=== PATIENT | female | born 1945 | race Hispanic/Latino ===

== ENCOUNTER 2018-03-30 10:17 | Day surgery (SDC) | payer MEDICARE ==
[~2018-03-30 10:17] MED LIST: ANCEF/STERILE WATER 2 GM/20 ML 2 GM/20 ML SYRINGE IV NR
[2018-03-30 11:25] LABS: Basophils % (Auto) 1.1 % (0.0-1.8); Eosinophils # (Auto) 0.2 K/mm3 (0.0-0.4); Eosinophils % (Auto) 4.6 % (0.0-4.3); Hematocrit 35.7 % (30.3-42.9); Hemoglobin 12.1 gm/dl (10.1-14.3); Lymphocytes # (Auto) 1.1 K/mm3 (1.2-5.4); Lymphocytes % (Auto) 27.2 % (13.4-35.0); Mean Corpuscular HGB Conc 34 % (30-34); Mean Corpuscular Hemoglobin 31 pg (28-32); Mean Corpuscular Volume 90 fl (79-97); Monocytes # (Auto) 0.4 K/mm3 (0.0-0.8); Monocytes % (Auto) 8.9 % (0.0-7.3); Platelet Count 190 K/mm3 (140-440); Red Blood Count 3.95 M/mm3 (3.65-5.03); Red Cell Distribution Width 13.5 % (13.2-15.2)
[2018-03-30 11:36] LABS: INR 0.99 (0.87-1.13)
[2018-03-30 11:37] LABS: Partial Thromboplastin Time 32.2 Sec. (24.2-36.6)
[2018-03-30 12:09] LABS: Albumin 4.3 g/dL (3.9-5); Calcium 9.4 mg/dL (8.4-10.2)
[2018-03-30] MEDS: NACL 0.9% 1000 ML 1,000 ML IV SCH ×2 (12:10→14:44)
[2018-03-30] MEDS ORDERED: XYLOCAINE 2% INFILTRATI ONE (14:23)
[2018-03-30] MEDS ORDERED: HEPARIN/NS 5000 UNIT/500ML(CATH LAB) 1,000 ML IR ONE (14:23)
[2018-03-30] MEDS ORDERED: SUBLIMAZE ONE (14:39)
[2018-03-30] MEDS ORDERED: VERSED ONE (14:39)
--- NOTE | 2018-03-30 15:34 | Short Stay Summary ---
Short Stay Documentation Date of service: 03/30/18 - History Principal diagnosis: venous hypertension, compression of a vein H&P: obtained from office - Allergies and Medications Current Medications: Allergies codeine Allergy (Verified 03/30/18 12:23) STOPS PT FROM BREATHING Tetanus Vaccines and Toxoid Allergy (Verified 03/30/18 12:23) Rash Home Medications Medication Instructions Recorded Confirmed Last Taken Type Aspirin [Adult Low Dose Aspirin EC] 81 mg PO DAILY 03/30/18 03/30/18 03/29/18 History 81mg Carvedilol 25 mg PO DAILY 03/30/18 03/30/18 03/29/18 History 25mg Colesevelam [Welchol] 625 mg PO DAILY 03/30/18 03/30/18 03/29/18 History 625mg Ergocalciferol [Vitamin D2] 1 cap PO DAILY 03/30/18 03/30/18 03/29/18 History 1 Fenofibrate Nanocrystallized 145 mg PO DAILY 03/30/18 03/30/18 03/29/18 History [Fenofibrate] 145mg Furosemide [Lasix TAB] 20 mg PO DAILY 03/30/18 03/30/18 03/29/18 History 20mg Gabapentin [Neurontin] 100 mg PO TID 03/30/18 03/30/18 03/29/18 History 100mg Levothyroxine Sodium 25 mcg PO DAILY 03/30/18 03/30/18 03/29/18 History 25mcg Losartan Potassium 100 mg PO DAILY 03/30/18 03/30/18 03/29/18 History 100mg Magnesium Oxide 400 mg PO TID 03/30/18 03/30/18 03/29/18 History 300mg Metformin HCl 1,000 mg PO BID 03/30/18 03/30/18 03/28/18 History 1000mg Oxybutynin [Ditropan] 5 mg PO DAILY 03/30/18 03/30/18 03/29/18 History 5mg Ranitidine HCl [Heartburn Relief] 150 mg PO QPM 03/30/18 03/30/18 03/29/18 History 150mg Sodium Bicarbonate 650 mg PO BID 03/30/18 03/30/18 03/29/18 History 650mg Travoprost [Travatan Z 0.004%] 1 drop OU QHS 03/30/18 03/30/1803/29/18 History 1 amLODIPine [Norvasc] 10 mg PO DAILY 03/30/18 03/30/18 03/29/18 History 10mg glipiZIDE XL [Glucotrol Xl] 10 mg PO DAILY 03/30/18 03/30/18 03/29/18 History 10mg Active Medications Cefazolin Sodium (Ancef/Sterile Water 2 Gm/20 Ml) 2 gm in 20 mls @ 80 mls/hr IV PREOP NR; Protocol Stop: 03/30/18 23:59 Sodium Chloride (Nacl 0.9% 1000 Ml) 1,000 mls @ 42 mls/hr IV DIRECT KYRA Last Admin: 03/30/18 14:44 Dose: 42 mls/hr - Brief post op/procedure progress note Date of procedure: 03/30/18 Pre-op diagnosis: venous hypertension, compression of a vein Post-op diagnosis: same Procedure: Venogram, IVUS Anesthesia: local Surgeon: DARLEEN BALLARD Estimated blood loss: minimal Pathology: none Condition: stable - Disposition Condition at discharge: Good Disposition: DC-01 TO HOME OR SELFCARE Short Stay Discharge Plan Activity: advance as tolerated Weight Bearing Status: Weight Bear as Tolerated Diet: regular Wound: keep clean and dry, per your surgeon's advice Follow up with: DANIELLE ANTONIO MD [Primary Care Provider] - 7 Days
--- NOTE | 2018-03-30 15:41 | Operative Report ---
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 The patient was brought to the angiographic suite and placed in supine position on the examination table. Initial ultrasound evaluation of her legs demonstrated patent femoral veins bilaterally. Her legs were prepped from groin to mid thigh in the usual sterile fashion. 1% lidocaine was used for anesthesia. Under ultrasound guidance, the right femoral vein was cannulated proximally using a 7 cm 18-gauge needle. A 0.035 guidewire was advanced centrally under fluoroscopy. The needle was removed and a 5 [place] sheath placed. Access to the left proximal femoral vein was obtained of the similar fashion and a second I [place] sheath placed. Bilateral lower extremity venogram was then performed through the sheath. This demonstrates approximately 80% stenosis within the left external iliac vein. Additionally, there is a 70% stenosis within the right external iliac vein and prestenotic dilatation. Overall, the veins are diminutive in size. A decision was made to further evaluate with intravascular ultrasound. Intravascular ultrasound was performed through the right sheath from the IVC, right common iliac vein, right external iliac vein and right common femoral vein. The IVC is widely patent. The right common iliac vein demonstrates 20% stenosis extending into to an 80% stenosis in the external iliac vein. The right common femoral vein is patent. Intravascular ultrasound was then performed through the left sheath from the IVC , left common iliac vein, left external iliac vein and left common femoral vein. The left common iliac vein demonstrates a 20% stenosis extending into an 80% stenosis within the left external iliac vein proximally. The left common femoral vein is patent. Given the size of the veins, the patient will need to be treated with to 14 mm x 90 mm wall stents however, these will need to be brought in. At this point, the catheters, guidewires and she's were removed and hemostasis achieved using manual compression. Sterile compression dressings were then applied. The patient tolerated the procedure well. There were no immediate post procedure complications. Conscious sedation was performed under the guidance of radiologic nursing. Continuous cardiopulmonary monitoring was utilized. Impression: 1) Bilateral lower extremity venogram demonstrating significant stenosis and bilateral external iliac veins. 2) Intravascular ultrasound performed in the IVC, right common iliac vein, right external iliac vein, right common femoral vein, left common iliac vein, left external iliac vein and left common femoral vein. Intravascular ultrasound demonstrates 20% stenosis in the right common iliac vein extending into an 80% stenosis in the right external iliac vein. Intravascular ultrasound demonstrates a 20% stenosis extending into an 80% stenosis of the left external iliac vein proximally.
[2018-03-30 16:38] VITALS: BP 142/64
== END 2018-03-30 17:15 | disposition home or self-care (01) ==
LOC: CATHLABREC 10:17
PROVIDERS: ATTEND Radiology Diagnostic Radiology
DX: I87.1 Compression of vein (principal); I87.2 Venous insufficiency (chronic) (peripheral); I10 Essential (primary) hypertension; E11.9 Type 2 diabetes mellitus without complications; E78.5 Hyperlipidemia, unspecified; Z79.82 Long term (current) use of aspirin; Z79.84 Long term (current) use of oral hypoglycemic drugs; Z79.01 Long term (current) use of anticoagulants; Z88.5 Allergy status to narcotic agent; Z88.7 Allergy status to serum and vaccine; Z88.6 Allergy status to analgesic agent; Z88.8 Allergy status to other drugs, medicaments and biological substances; Z90.710 Acquired absence of both cervix and uterus; Z90.49 Acquired absence of other specified parts of digestive tract; Z90.11 Acquired absence of right breast and nipple; Z85.3 Personal history of malignant neoplasm of breast; Z86.718 Personal history of other venous thrombosis and embolism; Z80.9 Family history of malignant neoplasm, unspecified
CPT/HCPCS: 36415; 37252; 37253; 75822; 76937; 80053; 85025; 85610; 85730; 99156; 99157; C1753; C1769; C1894; J1644; J2250; J3010; J7030; Q9967

== ENCOUNTER 2018-04-23 09:48 | Day surgery (SDC) | payer MEDICARE ==
[~2018-04-23 09:48] MED LIST changes: +NACL 0.9% 1000 ML 1,000 ML IV SCH
[2018-04-23] MEDS ORDERED: VERSED ONE (12:09)
[2018-04-23] MEDS ORDERED: HEPARIN/NS 5000 UNIT/500ML(CATH LAB) 1,000 ML IR ONE (12:09)
[2018-04-23] MEDS ORDERED: HEPARIN 10,000 UNITS/10 ML ONE (12:09)
[2018-04-23] MEDS ORDERED: SUBLIMAZE ONE (12:09)
[2018-04-23] MEDS: XYLOCAINE 2% INFILTRATI ONE ×2 (12:26→12:28)
[2018-04-23] MEDS ORDERED: TORADOL ONE (12:36)
--- NOTE | 2018-04-23 13:30 | Short Stay Summary ---
Short Stay Documentation Date of service: 04/23/18 - History Principal diagnosis: venous hypertension/ compression of vein H&P: obtained from office - Allergies and Medications Current Medications: Allergies codeine Allergy (Verified 03/30/18 12:23) STOPS PT FROM BREATHING Tetanus Vaccines and Toxoid Allergy (Verified 03/30/18 12:23) Rash Home Medications Medication Instructions Recorded Confirmed Last Taken Type Aspirin [Adult Low Dose Aspirin EC] 81 mg PO DAILY 03/30/18 04/23/18 04/23/18 History 81 mg Carvedilol 25 mg PO DAILY 03/30/18 04/23/18 04/22/18 History 25 mg Colesevelam [Welchol] 625 mg PO DAILY 03/30/18 04/23/18 04/22/18 History 625 mg Ergocalciferol [Vitamin D2] 1 cap PO DAILY 03/30/18 04/23/18 04/22/18 History 1 cap Fenofibrate Nanocrystallized 145 mg PO DAILY 03/30/18 04/23/18 04/22/18 History [Fenofibrate] 145 mg Furosemide [Lasix TAB] 20 mg PO DAILY 03/30/18 04/23/18 04/22/18 History 20 mg Gabapentin [Neurontin] 100 mg PO TID 03/30/18 04/23/18 04/22/18 History 100 Levothyroxine Sodium 25 mcg PO DAILY 03/30/18 04/23/18 04/22/18 History 25mcg Losartan Potassium 100 mg PO DAILY 03/30/18 04/23/18 04/23/18 History 100 Magnesium Oxide 400 mg PO TID 03/30/18 04/23/18 04/22/18 History 400 Metformin HCl 1,000 mg PO BID 03/30/18 04/23/18 04/21/18 History 1000 Oxybutynin [Ditropan] 5 mg PO DAILY 03/30/18 04/23/18 04/22/18 History 5 mg Ranitidine HCl [Heartburn Relief] 150 mg PO QPM 03/30/18 04/23/18 04/22/18 History 150 mg Sodium Bicarbonate 650 mg PO BID 03/30/18 04/23/18 04/22/18 History 650 mg Travoprost [Travatan Z 0.004%] 1 drop OU QHS 03/30/18 04/23/18 04/22/18 History 1 drop amLODIPine [Norvasc] 10 mg PO DAILY 03/30/18 04/23/18 04/22/18 History 10 mg glipiZIDE XL [Glucotrol Xl] 10 mg PO DAILY 03/30/18 04/23/18 04/22/18 History 10 mg Active Medications Cefazolin Sodium (Ancef/Sterile Water 2 Gm/20 Ml) 2 gm in 20 mls @ 80 mls/hr IV PREOP NR; Protocol Stop: 04/23/18 23:59 Sodium Chloride (Nacl 0.9% 1000 Ml) 1,000 mls @ 42 mls/hr IV DIRECT KYRA Last Admin: 04/23/18 11:01 Dose: 42 mls/hr - Brief post op/procedure progress note Date of procedure: 04/23/18 Pre-op diagnosis: venous hypertension/ compression of vein Post-op diagnosis: same Procedure: BLE venogram, venoplasty with stent Anesthesia: local Surgeon: DARLEEN BALLARD Estimated blood loss: minimal Pathology: none Condition: stable - Disposition Condition at discharge: Good Disposition: DC-01 TO HOME OR SELFCARE Short Stay Discharge Plan Activity: advance as tolerated Weight Bearing Status: Weight Bear as Tolerated Diet: regular Wound: keep clean and dry, per your surgeon's advice Follow up with: DANIELLE ANTONIO MD [Primary Care Provider] - 7 Days
--- NOTE | 2018-04-23 13:33 | Operative Report ---
Operative Report Operative Report: Exam: Bilateral lower extremity venogram, venoplasty with stent placement Clinical indication: Patient with a history of venous hypertension and extrinsic compression of his iliac veins Date: 04/23/2018 Procedure: Following an explanation of the risks, benefits and alternatives; written informed consent was obtained. The patient was brought to the injury graphic suite and placed in supine position on the examination table. Initial ultrasound evaluation of his legs demonstrated patent femoral veins bilaterally. The patient's legs and groin were prepped and draped in the usual sterile fashion. 1% lidocaine was used for anesthesia. Under ultrasound guidance, the right femoral vein was cannulated proximally with a 7 cm 18-gauge needle. A 0.035 guidewire was advanced centrally under fluoroscopy. The needle was removed and a 5 [place] sheath placed. Access to the left proximal femoral vein was obtained in a similar fashion and a second 5 [place] sheath placed. Angiography was then performed through the sheaths which demonstrated significant extrinsic compression on bilateral external iliac veins. An 14 mm x 60 mm Wallstent was advanced through the right sheath and deployed from the common iliac vein across the lesion, a second 14 X 60 Wall stent was deployed in the right external iliac vein to the distal right external iliac vein. A 14 x 90 mm Wallstent was advanced through the left sheath and deployed in the left common iliac vein across the lesion in the left external iliac vein to the distal left external iliac vein. The stents were seated using 12 x 60 mm balloons insufflated at multiple locations phenomenal atmospheres. Post stent placement and angioplasty imaging demonstrated reduction of the stenosis to less than 10%. There is brisk flow throughout the deep venous system At this point, the catheters, guidewires and sheaths were removed and hemostasis achieved using manual compression. Sterile compression dressings were then applied. The patient tolerated the procedure well. There were no immediate post procedure complications. Conscious sedation was performed under the guidance of radiologic nursing. Continuous cardiopulmonary monitoring was utilized. Depression: 1) Bilateral lower extremity venogram demonstrating significant compression of external iliac veins bilaterally. 2) Prior venogram demonstrates stenosis involving the right common iliac vein, right external iliac vein and left common iliac vein 3) Treatment of the lesions with wall stents and venoplasty as described with residual less than 10% stenosis.
[2018-04-23 13:56] VITALS: BP 133/65
== END 2018-04-23 15:15 | disposition home or self-care (01) ==
LOC: CATHLABREC 09:48 → CATH 09:48 → CATHLABREC 15:15
PROVIDERS: ATTEND Radiology Diagnostic Radiology
DX: I87.1 Compression of vein (principal); I87.302 Chronic venous hypertension (idiopathic) without complications of left lower extremity; I10 Essential (primary) hypertension; M19.90 Unspecified osteoarthritis, unspecified site; E03.9 Hypothyroidism, unspecified; K21.9 Gastro-esophageal reflux disease without esophagitis; M81.0 Age-related osteoporosis without current pathological fracture; G62.9 Polyneuropathy, unspecified; E78.00 Pure hypercholesterolemia, unspecified; Z79.82 Long term (current) use of aspirin; Z90.10 Acquired absence of unspecified breast and nipple; Z79.899 Other long term (current) drug therapy; Z88.7 Allergy status to serum and vaccine; Z88.5 Allergy status to narcotic agent; Z88.8 Allergy status to other drugs, medicaments and biological substances; Z90.49 Acquired absence of other specified parts of digestive tract; Z90.710 Acquired absence of both cervix and uterus; Z85.3 Personal history of malignant neoplasm of breast; Z98.890 Other specified postprocedural states
CPT/HCPCS: 37238; 37239; 99156; 99157; C1725; C1769; C1876; C1894; J1644; J1885; J2250; J3010; J7030; 76937; Q9967